=== PATIENT | female | born 1995 | race African-American/Black ===

== ENCOUNTER 2017-05-04 16:28 | Emergency (ER) | payer SELFPAY ==
[~2017-05-04] VITALS: Ht 152.4 cm; Wt 78.2 kg
[2017-05-04 16:30] VITALS: BP 120/76; PULSE 92; TEMP 98.8
[2017-05-04] MEDS ORDERED: PREDNISONE20 MG PO (17:14)
== END 2017-05-04 17:50 | disposition home or self-care (01) ==
LOC: COL.ER 16:28
DX: R59.1 Generalized enlarged lymph nodes (principal)
CPT/HCPCS: J7512

== ENCOUNTER 2020-10-26 06:22 | Emergency (ER) | payer SELFPAY ==
[~2020-10-26] VITALS: Ht 152.4 cm; Wt 106.8 kg
[~2020-10-26 06:22] MED LIST: PREDNISONE20 MG PO
[2020-10-26 07:16] LABS: COLLECTION METHOD CLEAN CATCH
[2020-10-26 07:24] LABS: MUCOUS Present /lpf; PH 5 (5-8); URINE APPEARANCE Cloudy; URINE BACTERIA Rare /hpf; URINE BILIRUBIN Negative (NEGATIVE); URINE BLOOD Negative (NEGATIVE); URINE COLOR Yellow; URINE GLUCOSE Negative (NEGATIVE); URINE KETONE Negative (NEGATIVE); URINE LEUKOCYTE ESTERASE Trace (NEGATIVE); URINE NITRATE Negative (NEGATIVE); URINE PROTEIN(semi-quant) Negative (NEGATIVE); URINE RBC 0-2 /hpf; URINE UROBILINOGEN Negative (NEGATIVE)
[2020-10-26 07:29] LABS: ALANINE AMINOTRANSFERASE 15 U/L (4-34); ALBUMIN 3.9 gm/dL (3.5-5.0); ALKALINE PHOSPHATASE 62 U/L (50-136); ANION GAP 7 mmol/L (7-16); AST,SGOT 20 U/L (15-37); BILIRUBIN,TOTAL < 0.1 mg/dL (0.0-1.0); BLOOD UREA NITROGEN 11 mg/dL (7-17); CALCIUM 8.5 mg/dL (8.4-10.2); CARBON DIOXIDE 25 mmol/L (22-30); CHLORIDE 108 mmol/L (98-107); CREATININE, serum 0.91 (0.52-1.25); GLUCOSE 107 mg/dL (74-106); POTASSIUM 3.9 mmol/L (3.4-5.0); SODIUM 140 mmol/L (137-145); TOTAL PROTEIN 7.1 gm/dL (6.4-8.2)
[2020-10-26 07:43] LABS: BASO # 0.1 (0.0-0.2); BASO % 0.7 % (0.0-2.0); EOS # 0.4 (0.0-0.7); GRAN # 6.5 (1.4-6.5); GRAN % 64.4 % (42.2-75.2); HEMATOCRIT 38.1 % (37.0-47.0); HEMOGLOBIN 11.9 g/dl (12.5-16.0); LYMPH # 2.4 (1.2-3.4); LYMPH % 23.3 % (20.0-51.0); MEAN CELL VOLUME 82 fl (80.0-100.0); MEAN CORPUSCULAR HEMOGLOBIN 26 pg (27.0-31.0); MEAN CORPUSCULAR HGB CONC 31 g/dl (33.0-37.0); MEAN PLATELET VOLUME 12.1 fl (7.4-10.4); MONO # 0.7 (0.1-0.6); MONO % 7.3 % (1.7-9.3); PLATELET COUNT 226 K/mm3 (130-400); RED BLOOD COUNT 4.66 M/mm3 (4.10-5.30)
[2020-10-26] MEDS ORDERED: FLEXERIL 1010 MG/TAB PO (08:15)
[2020-10-26 08:28] VITALS: BP 119/83; PULSE 92; TEMP 98
== END 2020-10-26 08:28 | disposition home or self-care (01) ==
LOC: COL.ER 06:22
PROVIDERS: Student in an Organized Health Care Education/Training Program
DX: R10.32 Left lower quadrant pain (principal); M79.10 Myalgia, unspecified site; F17.210 Nicotine dependence, cigarettes, uncomplicated; Z32.02 Encounter for pregnancy test, result negative
CPT/HCPCS: J1885

== ENCOUNTER 2020-11-03 21:32 | Emergency (ER) | payer SELFPAY ==
[~2020-11-03] VITALS: Ht 152.4 cm; Wt 106.8 kg
[~2020-11-03 21:32] MED LIST changes: +FLEXERIL 1010 MG/TAB PO
[2020-11-03 22:10] VITALS: TEMP 99.3
[2020-11-04 00:22] LABS: BASO # 0.1 (0.0-0.2); BASO % 0.6 % (0.0-2.0); EOS # 0.4 (0.0-0.7); EOS % 3.3 % (0-4.0); GRAN # 9.1 (1.4-6.5); GRAN % 72.3 % (42.2-75.2); HEMATOCRIT 40.1 % (37.0-47.0); HEMOGLOBIN 12.2 g/dl (12.5-16.0); LYMPH # 2.2 (1.2-3.4); LYMPH % 17.1 % (20.0-51.0); MEAN CELL VOLUME 86 fl (80.0-100.0); MEAN CORPUSCULAR HEMOGLOBIN 26 pg (27.0-31.0); MEAN CORPUSCULAR HGB CONC 30 g/dl (33.0-37.0); MEAN PLATELET VOLUME 11.8 fl (7.4-10.4); MONO # 0.8 (0.1-0.6); MONO % 6.4 % (1.7-9.3); PLATELET COUNT 253 K/mm3 (130-400); RED BLOOD COUNT 4.69 M/mm3 (4.10-5.30)
[2020-11-04 00:33] LABS: ALBUMIN 4.3 gm/dL (3.5-5.0); BILIRUBIN,TOTAL 0.4 mg/dL (0.0-1.0); CALCIUM 8.8 mg/dL (8.4-10.2); CREATININE, serum 0.84 (0.52-1.25); POTASSIUM 3.9 mmol/L (3.4-5.0); TOTAL PROTEIN 7.8 gm/dL (6.4-8.2)
[2020-11-04 02:09] LABS: COLLECTION METHOD CLEAN CATCH
[2020-11-04 02:16] LABS: MUCOUS Present /lpf; PH 5 (5-8); SQUAMOUS EPITHELIAL 0-2 /hpf; URINE APPEARANCE Clear; URINE BACTERIA Rare /hpf; URINE BILIRUBIN Negative (NEGATIVE); URINE BLOOD 2+ (NEGATIVE); URINE COLOR Yellow; URINE GLUCOSE Negative (NEGATIVE); URINE KETONE Negative (NEGATIVE); URINE LEUKOCYTE ESTERASE Trace (NEGATIVE); URINE NITRATE Negative (NEGATIVE); URINE PROTEIN(semi-quant) Negative (NEGATIVE); URINE RBC 0-2 /hpf; URINE UROBILINOGEN Negative (NEGATIVE)
[2020-11-04 03:14] VITALS: BP 140/70; PULSE 80
== END 2020-11-04 03:27 | disposition home or self-care (01) ==
LOC: COL.ER 21:32
PROVIDERS: Emergency Medicine
DX: S22.32XA Fracture of one rib, left side, initial encounter for closed fracture (principal); X50.9XXA Other and unspecified overexertion or strenuous movements or postures, initial encounter
CPT/HCPCS: A9284; J1885; J2270; J7030; Q9967

== ENCOUNTER 2020-11-30 10:39 | Emergency (ER) | payer SELFPAY ==
[~2020-11-30] VITALS: Ht 152.4 cm; Wt 107.3 kg
[2020-11-30 11:06] VITALS: TEMP 99.9
[2020-11-30 11:33] LABS: STREP SCREEN NEGATIVE
[2020-11-30] MEDS ORDERED: MAGIC MOUTH PO (11:45)
[2020-11-30 11:50] VITALS: BP 120/61; PULSE 90
== END 2020-11-30 11:55 | disposition home or self-care (01) ==
LOC: COL.ER 10:39
PROVIDERS: Nurse Practitioner Primary Care
DX: J03.90 Acute tonsillitis, unspecified (principal); F17.210 Nicotine dependence, cigarettes, uncomplicated